=== PATIENT | female | born 1985 | race African-American/Black ===

== ENCOUNTER 2018-01-11 10:34 | Emergency (ER) | payer MEDICAID ==
[~2018-01-11] VITALS: Ht 162.6 cm; Wt 53.7 kg
[~2018-01-11 10:34] MED LIST: FERR-63 PO; PREN-55 PO; PREN1.4T2
[2018-01-11] MEDS ORDERED: KETOROLAC 30MG/ML VIAL IM ONE (11:30)
[2018-01-11] MEDS ORDERED: CYCLOBENZAPRINE 10MG TABLET PO ONE (11:30)
[2018-01-11 11:37] VITALS: BP 104/75
== END 2018-01-11 12:45 | disposition home or self-care (01) ==
LOC: ER 10:34
DX: M54.2 Cervicalgia (principal); R03.0 Elevated blood-pressure reading, without diagnosis of hypertension; F17.210 Nicotine dependence, cigarettes, uncomplicated; F12.90 Cannabis use, unspecified, uncomplicated
CPT/HCPCS: 96372; 99283; J1885

== ENCOUNTER 2018-04-01 19:57 | Emergency (ER) | payer MEDICAID ==
[~2018-04-01] VITALS: Ht 162.6 cm; Wt 54.0 kg
[2018-04-01] MEDS ORDERED: SODIUM CHLORIDE 0.9% 1,000 ML IV ONE (23:31)
[2018-04-01 23:53] LABS: BASOPHILS % 0.8 % (0.0-2.0); HEMATOCRIT. 34.8 % (36.0-48.0); HEMOGLOBIN. 11.4 g/dL (12.0-16.0); LYMPHOCYTES % 17.5 % (20.0-50.0); MEAN CORPUSCULAR HEMOGLOBIN 28.6 pg (28.0-32.0); MEAN CORPUSCULAR VOLUME 87.3 fL (81.0-99.0); MEAN PLATELET VOLUME 9.9 fl (7.4-10.4); MONOCYTES % 6.7 % (2.0-8.0); PLATELET 214 x1000/uL (130-400); RED BLOOD CELL COUNT 3.99 mill/uL (4.2-5.4); RED CELL DISTRIBUTION WIDTH 13.9 % (11.6-14.6)
[2018-04-01 23:55] LABS: CHLORIDE 109 mEq/L (98-107)
[2018-04-02 02:00] VITALS: BP 105/65
[2018-04-02] MEDS ORDERED: KETOROLAC 30MG/ML VIAL IV ONE (02:00)
== END 2018-04-02 02:15 | disposition home or self-care (01) ==
LOC: ER 19:57
DX: M25.551 Pain in right hip (principal); D64.9 Anemia, unspecified; F12.10 Cannabis abuse, uncomplicated; Z91.040 Latex allergy status; Z98.890 Other specified postprocedural states
CPT/HCPCS: 36415; 73502; 80048; 85025; 93971; 96361; 96374; 99285; J1885; J7030; Z7610

== ENCOUNTER 2019-04-22 07:29 | Emergency (ER) | payer OTHER, MEDICAID ==
[~2019-04-22] VITALS: Ht 165.1 cm; Wt 53.0 kg
[2019-04-22 08:18] VITALS: BP 153/96
== END 2019-04-22 08:29 | disposition home or self-care (01) ==
LOC: ER 07:33
DX: K08.89 Other specified disorders of teeth and supporting structures (principal); F12.10 Cannabis abuse, uncomplicated; Z98.890 Other specified postprocedural states; Z88.8 Allergy status to other drugs, medicaments and biological substances
CPT/HCPCS: 99283

== ENCOUNTER 2020-07-04 04:06 | Emergency (ER) | payer MEDICAID, OTHER ==
[~2020-07-04] VITALS: Ht 162.6 cm; Wt 50.0 kg
[2020-07-04] MEDS ORDERED: HYDROCODONE/ACETAMINOPHEN 5/325MG TABLET PO STA (04:52)
[2020-07-04] MEDS ORDERED: MAGNESIUM/ALUMINUM HYDROXIDE/SIMETHICONE 30ML UDC PO STA (04:52)
[2020-07-04 05:08] LABS: CLARITY URINE CLEAR (CLEAR); COLOR URINE YELLOW (YELLOW); KETONES URINE TRACE (NEGATIVE); LEUKOCYTE ESTERASE URINE NEGATIVE (NEGATIVE); NITRITE URINE NEGATIVE (NEGATIVE); OCCULT BLOOD URINE NEGATIVE (NEGATIVE); PROTEIN URINE NEGATIVE (NEGATIVE); SPECIFIC GRAVITY URINE 1.026 (1.005-1.030)
[2020-07-04 05:14] LABS: CHLORIDE 109 mEq/L (98-107)
[2020-07-04 05:16] LABS: BASOPHILS % 0.7 % (0.0-2.0); EOSINOPHILS % 2.6 % (0.0-5.0); HEMATOCRIT. 33.9 % (36.0-48.0); HEMOGLOBIN. 11.3 g/dL (12.0-16.0); LYMPHOCYTES % 21.2 % (20.0-50.0); MEAN CORPUSCULAR HEMOGLOBIN 29.6 pg (28.0-32.0); MEAN CORPUSCULAR VOLUME 88.9 fL (81.0-99.0); MEAN PLATELET VOLUME 10.5 fl (7.4-10.4); MONOCYTES % 6.5 % (2.0-8.0); PLATELET 186 x1000/uL (130-400); RED BLOOD CELL COUNT 3.81 mill/uL (4.2-5.4); RED CELL DISTRIBUTION WIDTH 13.1 % (11.6-14.6)
[2020-07-04 05:26] LABS: HCG SCREEN NEGATIVE
[2020-07-04 06:47] VITALS: BP 95/57
== END 2020-07-04 06:48 | disposition home or self-care (01) ==
LOC: ER 04:06
DX: K29.70 Gastritis, unspecified, without bleeding (principal); Z87.19 Personal history of other diseases of the digestive system
CPT/HCPCS: 36415; 80053; 81003; 81025; 84703; 85025; 93005; 99284